=== PATIENT | female | born 1945 ===

== ENCOUNTER 2018-02-01 04:04 | Day surgery (SDC) | payer MEDICARE ==
[~2018-02-01] VITALS: Ht 170.2 cm; Wt 73.9 kg
[~2018-02-01 04:04] MED LIST: HYDR-2966 PO; IBUP200C71 PO
[2018-02-01 07:55] VITALS: BP 177/106
[2018-02-01] MEDS ORDERED: ONDANSETRON 4 MG/2 ML VIAL ONE (08:18)
[2018-02-01] MEDS ORDERED: DEXAMETHASONE SOD 4 MG/ML VIAL ONE (08:18)
[2018-02-01] MEDS ORDERED: fentaNYL CITR 100 MCG/2 ML AMP ONE ×2 (08:18→10:02)
[2018-02-01] MEDS ORDERED: PROPOFOL EMUL(*) 10MG/ML 20 ML 20 ML ONE (08:18)
[2018-02-01] MEDS ORDERED: LIDOCAINE MPF 1% 5 ML VIAL ONE (08:18)
[2018-02-01] MEDS ORDERED: ROPIVACAINE 0.2% 20 ML VIAL ONE (08:38)
[2018-02-01] MEDS ORDERED: MIDAZOLAM 2 MG/2 ML VIAL IVP PRN (08:50)
[2018-02-01] MEDS ORDERED: NORMOSOL R SOLN(*) 1000 ML BAG 1,000 ML IV PRN (08:50)
[2018-02-01] MEDS ORDERED: ceFAZolin(*) 1 GM VIAL 1 GM in NS(*) 0.9% 100 ML ADDVANT BAG 100 ML IVPB ONE (08:50)
[2018-02-01] MEDS ORDERED: FAMOTIDINE 20 MG TAB PO ONE (08:50)
[2018-02-01] MEDS ORDERED: LIDOCAINE/SOD BICARB 8.4% SYR ID ONE (08:50)
[2018-02-01] MEDS ORDERED: CELECOXIB 200 MG CAP PO ONE (08:50)
[2018-02-01] MEDS ORDERED: GLYCOPYRROLATE 0.2 MG/ML SDV ONE (09:15)
[2018-02-01] MEDS ORDERED: KETAMINE HCL 200 MG/20 ML MDV ONE (09:15)
[2018-02-01] MEDS ORDERED: HYDR-385 PO (11:48)
[2018-02-01] MEDS ORDERED: CEPH500T7 PO (11:49)
[2018-02-01 12:40] VITALS: BP 135/90
[2018-02-01 13:06] VITALS: BP 144/92
[2018-02-01 13:30] VITALS: BP 139/97
[2018-02-01 13:50] VITALS: BP 150/111
[2018-02-01 13:52] VITALS: BP 156/97
--- NOTE | 2018-02-01 16:58 | OPERATIVE REPORT 1 ---
EVENT DATE: February 01, 2018 SURGEON: Radhames Deleon MD ANESTHESIOLOGIST: Mike Sarabia MD ANESTHESIA: General. INTERNSHIP COORDINATOR: Bill Angeles PA-C PREOPERATIVE DIAGNOSIS Delayed treatment of left elbow fracture dislocation with retained incarcerated fragment of radial head involving approximately 50% of the radial head still stuck in the capsule with significant stiffness. POSTOPERATIVE DIAGNOSIS Delayed treatment of left elbow fracture dislocation with retained incarcerated fragment of radial head involving approximately 50% of the radial head still stuck in the capsule with significant stiffness. PROCEDURES PERFORMED 1. Removal of radial head fragment incarcerated within the anterior capsule. 2. Columnar procedure with complete anterior capsulectomy. 3. Radial head arthroplasty. 4. Manipulation into extension. ESTIMATED BLOOD LOSS Minimal. INTRAVENOUS FLUIDS 1200 mL TOURNIQUET TIME 65 minutes SPECIMENS No specimens. COMPLICATIONS No complications. IMPLANTS USED [employer] Align radial head arthroplasty with a 7 mm stem, a zero extension, and 22 mm radial head. SUMMARY OF PROCEDURE The patient was brought into the operating room and placed on the OR table in the supine position with the hand table at her left side. After obtaining adequate general anesthesia, the left upper extremity was prepped and draped in the usual sterile fashion. The limb was exsanguinated, and the tourniquet was inflated to 250 mmHg. In palpating her, it was evident that she had some fairly dense scar tissue with calcification just proximal to the lateral epicondyle which was quite sharp. Therefore, I elected to make a small fascial incision using here and remove this since it would probably cause her pain, but the primary incision was made over the lateral epicondyle extending down over the radial head and taken down through capsule. Care was taken to leave her pronated during the approach to minimize risk of damage to the posterior interosseous nerve. Once we had exposed the radial head, we noted that the fluid was clear without any evidence of infection. Subsequently, the broken radial head was excised with an oscillating saw after having first marked the position of her cut using the 15 mm hammer guide. With this done, we then went about finding the incarcerated fragment of the radial which was quite large and was densely bound to the capsule, so we had to sharply dissect it away from this , removed it, and then measured the head. It looked like it was about a 23, so we elected to downsize to 22 since we had a choice between a 22 and a 24. At this point, I did try to extend her elbow, but unfortunately, she was still heavily scarred down and would not extend. Therefore, we tried to do a release of the capsule from the anterior aspect of the humerus. This was done carefully in a subperiosteal plane all the way down to the joint, and then we tested again, but unfortunately, it still would not extend. Therefore, I ended up doing a wedge resection capsulectomy of this tissue, and then afterward, we were able to extend her well. We now directed our attention to the radial head arthroplasty itself, which started with a 7 reamer which seemed like it had good contact. The C-arm was used to check position, and it was touching the cortical phillips. Consequently, we trialed with a stem, and the 24 looked too large. The 22 looked like it would fit well, but I did have to cut a little bit more off of the neck to get an adequate fit. Otherwise, it looked like it was a bit overstuffed. With this repeat cut and repeat reaming, the trial was done again, and it looked much better. We then removed the trial, washed the wound, and then placed our final implant. The alignment guide was used to the reference point previously assessed at the fovea of the ulna, and we locked it into position using the torque wrench. With this done, the wound was irrigated one more time, and then we deflated the tourniquet. We controlled bleeding with bipolar cautery. There were no major vessels seen. Repeat irrigation was followed by closure with 0 Vicryl on the fascia and then closure with 3-0 in the subcutaneous tissue and 4-0 Monocryl for skin with Steri-Strips. Repeat irrigation was done between layers of closure. She was given a posterior splint and a sling. PLAN The plan was to have her begin physical therapy in approximately seven days after her initial physician visit. PEDRO
[2018-02-05] MEDS ORDERED: MIDAZOLAM 2 MG/2 ML VIAL IVP PRN (08:50)
[2018-02-05] MEDS ORDERED: CELECOXIB 200 MG CAP PO ONE (08:50)
[2018-02-05] MEDS ORDERED: NORMOSOL R SOLN(*) 1000 ML BAG 1,000 ML IV PRN (08:50)
[2018-02-05] MEDS ORDERED: FAMOTIDINE 20 MG TAB PO ONE (08:50)
[2018-02-05] MEDS ORDERED: ceFAZolin(*) 1 GM VIAL 1 GM in NS(*) 0.9% 100 ML ADDVANT BAG 100 ML IV ONE (08:50)
[2018-02-05] MEDS ORDERED: LIDOCAINE/SOD BICARB 8.4% SYR ID ONE (08:50)
== END 2018-02-01 12:40 | disposition home or self-care (01) ==
LOC: OR 04:04
PROVIDERS: ATTEND Orthopaedic Surgery Hand Surgery
DX: S52.122G Displaced fracture of head of left radius, subsequent encounter for closed fracture with delayed healing (principal)
CPT/HCPCS: 24149; 24366; A4565; A9270; C1776; J0690; J1100; J2001; J2405; J2704; J2795; J3010; J3490; J7050